=== PATIENT | female | born 1970 | race Caucasian/White ===

== ENCOUNTER 2016-09-28 21:24 | Emergency (ER) | payer MEDICAID ==
[~2016-09-28 21:24] MED LIST: ADVAIR 100/28 DISKUS IH; ALBUTEROL0.09 MG/A4 IH; AMBIEN10 MG PO; AMITRIPTYLINE50 MG PO; AMOXICILLIN 50500 MG PO; AMOXICILLIN875 MG PO; ASPIRIN 81M81 MG/TA2 PO; AUGMENTIN 875-1 EAC1 PO; BACLOFEN10 M1 PO; BACTRIM DS 8001 TAB PO; BACTROBAN 22GM22 GM TP; BENADRYL ALLERG25 M2 PO; CELEXA40 MG PO; CENTRUM SILVER1 CTB PO; CEPHALEXIN500 M1 PO; CETIRIZINE10 MG PO; CINNAMON500 MG PO; CIPRO 250MG TA250 MG PO; CIPRO 500MG TA500 MG PO; CITALOPRAM40 MG PO; DILT-CD180 MG PO; DILTIAZEM HCL180 MG PO; DILTIAZEM HYDR180 M2 PO; DIPHENHYDRAMINE50 MG PO; ED BACLOFEN10 MG PO; FLAX SEED OIL1000 MG PO; FLONASE0.05 MG/AC NS; FLOVENT DI100 MCG/Ac IH; GLUCOPHAGE1000 MG PO; GOOD SENSE ASPI81 M1 PO; IPRATROPIUM BROM3 M1 IH; LANTUS PEN100 U/ML SC; LANTUS100 U/ML SQ; LEVAQUIN 5500 MG/TA1 PO; LEVOTHYROXINE0.15 MG PO; LEVOTHYROXINE0.2 MG PO; LIORESAL 1010 MG/TAB PO; LISINOPRIL10 MG; LISINOPRIL20 MG PO; LOPRESSOR PO; LOPRESSOR50 MG PO; LYRICA 100MG C100 MG PO; LYRICA 150MG C150 MG PO; LYRICA150 MG PO; LYRICA50 MG PO; MACROBID 1100 MG/CAP PO; METFORMIN HCL1000 MG PO; METFORMIN500 MG PO; METOPROLOL SUCC50 MG PO; NORCO 325 MG-51 TAB PO; NORVASC 5MG5 MG/TAB PO; NOVOLOG FLEX100 U/ML SC; NOVOLOG FLEX100 U/ML SQ; NYSTATIN 100MU/M1 ML PO; PERCOCET 325 MG1 TA2 PO; PRINIVIL20 MG PO; PROAIR HFA IH; PROVENTIL0.09 MG/A1 IH; TRAMADOL 50 MG TAB PO; TRAZADONE HYDR100 MG PO; TRESIBA FL100 UNIT/1 SC; ULTRAM 50MG TAB50 MG PO; ULTRAM50 M1 PO; ULTRAM50 MG PO; ZOFRAN4 M1 PO
[2016-09-28] MEDS ORDERED: PREDNISONE20 M1 PO (21:47)
[2016-09-28] MEDS ORDERED: ZITHROMAX 250M250 MG PO (21:47)
== END 2016-09-28 22:22 | disposition home or self-care (01) ==
LOC: ED 21:24
DX: G89.29 Other chronic pain (principal); J20.9 Acute bronchitis, unspecified; F17.210 Nicotine dependence, cigarettes, uncomplicated
CPT/HCPCS: J1200; J1885

== ENCOUNTER 2016-12-01 09:21 | Emergency (ER) | payer MEDICAID ==
[~2016-12-01 09:21] MED LIST changes: +PREDNISONE20 M1 PO; +ZITHROMAX 250M250 MG PO
[2016-12-01] MEDS ORDERED: LOPRESSOR 550 MG/TAB PO (09:32)
[2016-12-01] MEDS ORDERED: KETOROLAC10 MG PO (10:09)
[2016-12-01 10:27] VITALS: BP 191/107
== END 2016-12-01 10:28 | disposition home or self-care (01) ==
LOC: ED 09:21
DX: M79.7 Fibromyalgia (principal)

== ENCOUNTER 2016-12-27 08:51 | Emergency (ER) | payer MEDICAID ==
[~2016-12-27 08:51] MED LIST changes: +KETOROLAC10 MG PO; +LOPRESSOR 550 MG/TAB PO
[2016-12-27] MEDS ORDERED: PREDNISONE20 M1 PO (12:45)
[2016-12-27 13:10] VITALS: BP 150/94
== END 2016-12-27 13:10 | disposition home or self-care (01) ==
LOC: ED 08:51
DX: I10 Essential (primary) hypertension (principal); F41.9 Anxiety disorder, unspecified
CPT/HCPCS: J7512

== ENCOUNTER 2017-03-31 13:55 | Emergency (ER) | payer MEDICAID ==
[~2017-03-31] VITALS: Ht 162.6 cm; Wt 106.4 kg
[2017-03-31] MEDS ORDERED: NOVOLOG FLEX100 U/ML SQ (14:48)
[2017-03-31] MEDS ORDERED: ALPRAZOLAM0.25 MG (14:49)
[2017-03-31] MEDS ORDERED: TRAMADOL 50 MG TAB PO (14:49)
[2017-03-31 21:29] VITALS: BP 164/68
== END 2017-03-31 19:50 | disposition home or self-care (01) ==
LOC: ED 13:55
DX: K08.89 Other specified disorders of teeth and supporting structures (principal); I10 Essential (primary) hypertension; E11.9 Type 2 diabetes mellitus without complications; Z79.4 Long term (current) use of insulin
CPT/HCPCS: J7030; Q9967

== ENCOUNTER 2017-04-28 23:46 | Emergency (ER) | payer MEDICAID ==
[~2017-04-28] VITALS: Ht 165.1 cm; Wt 111.4 kg
[~2017-04-28 23:46] MED LIST changes: +ALPRAZOLAM0.25 MG
[2017-04-29 00:37] VITALS: BP 154/97
== END 2017-04-29 00:37 | disposition home or self-care (01) ==
LOC: ED 23:46
DX: S50.02XA Contusion of left elbow, initial encounter (principal); W01.198A Fall on same level from slipping, tripping and stumbling with subsequent striking against other object, initial encounter; Y92.009 Unspecified place in unspecified non-institutional (private) residence as the place of occurrence of the external cause; M79.7 Fibromyalgia; I10 Essential (primary) hypertension; F41.9 Anxiety disorder, unspecified; F17.200 Nicotine dependence, unspecified, uncomplicated; E03.9 Hypothyroidism, unspecified
CPT/HCPCS: J2270

== ENCOUNTER 2017-06-30 11:59 | Emergency (ER) | payer MEDICAID ==
[~2017-06-30] VITALS: Ht 162.6 cm; Wt 106.8 kg
[~2017-06-30 11:59] MED LIST changes: -AMBIEN10 MG PO; +AMBIEN5 M1 PO
[2017-06-30] MEDS ORDERED: D-1000 185 MG-11 TAB (12:13)
[2017-06-30] MEDS ORDERED: CYANOCOBAL1000 MCG/1 IM (12:13)
[2017-06-30 13:49] VITALS: BP 177/107
== END 2017-06-30 13:57 | disposition home or self-care (01) ==
LOC: ED 11:59
DX: S90.02XA Contusion of left ankle, initial encounter (principal); S90.32XA Contusion of left foot, initial encounter; S80.02XA Contusion of left knee, initial encounter; S80.12XA Contusion of left lower leg, initial encounter; W01.10XA Fall on same level from slipping, tripping and stumbling with subsequent striking against unspecified object, initial encounter; Y92.009 Unspecified place in unspecified non-institutional (private) residence as the place of occurrence of the external cause; I10 Essential (primary) hypertension; E11.9 Type 2 diabetes mellitus without complications; Z79.4 Long term (current) use of insulin; E03.9 Hypothyroidism, unspecified; F41.9 Anxiety disorder, unspecified; F32.9 Major depressive disorder, single episode, unspecified; M79.7 Fibromyalgia; G89.29 Other chronic pain

== ENCOUNTER 2017-07-16 13:00 | Outpatient (RCR) | payer MEDICAID ==
[~2017-07-16 13:00] MED LIST changes: +CYANOCOBAL1000 MCG/1 IM; +D-1000 185 MG-11 TAB
== END 2017-07-16 13:30 | disposition home or self-care (01) ==
LOC: PT 13:00
DX: M79.7 Fibromyalgia (principal); R29.6 Repeated falls; R29.898 Other symptoms and signs involving the musculoskeletal system

== ENCOUNTER → 2017-10-08 | Outpatient (CLI) | payer MEDICAID | LOC: LAB 12:54 | DX: F19.90 Other psychoactive substance use, unspecified, uncomplicated (principal); Z91.040 Latex allergy status ==

== ENCOUNTER → 2017-10-18 | Outpatient (CLI) | payer MEDICAID ==
[2017-10-18 16:52] LABS: BASO # 0.1 (0.02-0.10); EOS # 0.3 (0.04-0.40); EOS % 1.9 % (1.0-5.0); HEMATOCRIT 39.7 % (37.0-47.0); HEMOGLOBIN 12.4 g/dL (12.5-16.0); LYMPH# 3.4 (1.50-4.00); MEAN CELL VOLUME 85 fl (78-100); MEAN CORPUSCULAR HEMOGLOBIN 27 pg (27-31); MEAN CORPUSCULAR HGB CONC 31 g/dL (33-37); MEAN PLATELET VOLUME 10.9 fl (7.4-10.4); MONO # 0.8 (0.20-0.80); NEU # 8.9 (1.40-6.50); PLATELET COUNT 429 K/mm3 (130-400); RED BLOOD COUNT 4.65 M/mm3 (4.10-5.30); RED CELL DISTRIBUTION WIDTH 15.2 % (11.5-14.5); WHITE BLOOD COUNT 13.5 K/mm3 (4.8-10.8)
[2017-10-18 21:00] LABS: ALBUMIN 3.8 g/dL (3.5-5.0); BUN/CREATININE RATIO 10.2 (6.0-26.0); CALCIUM 8.8 mg/dL (8.4-10.2); POTASSIUM 4.1 mmol/L (3.6-5.0); TOTAL BILIRUBIN 0.2 mg/dL (0.2-1.3); TOTAL PROTEIN 7.1 g/dL (6.3-8.2)
== END ==
LOC: LAB 15:55
PROVIDERS: Family Medicine
DX: E66.9 Obesity, unspecified (principal); Z91.040 Latex allergy status

== ENCOUNTER → 2017-10-26 | Outpatient (CLI) | payer MEDICAID | LOC: RAD 15:34 | DX: R07.81 Pleurodynia (principal); Z91.81 History of falling; R05 Cough ==

== ENCOUNTER → 2017-11-29 | Outpatient (CLI) | payer MEDICAID | LOC: RAD 12:00 | DX: M51.26 Other intervertebral disc displacement, lumbar region (principal); M48.061 Spinal stenosis, lumbar region without neurogenic claudication; M48.02 Spinal stenosis, cervical region ==

== ENCOUNTER 2018-03-08 05:11 | Emergency (ER) | payer MEDICAID ==
[2018-03-08 05:42] VITALS: BP 156/97
== END 2018-03-08 05:42 | disposition home or self-care (01) ==
LOC: ED 05:11
DX: E11.40 Type 2 diabetes mellitus with diabetic neuropathy, unspecified (principal); M79.7 Fibromyalgia; Z79.4 Long term (current) use of insulin; Z79.899 Other long term (current) drug therapy
CPT/HCPCS: J1885

== ENCOUNTER → 2018-04-01 | Outpatient (CLI) | payer MEDICAID ==
[2018-03-08 05:42] VITALS: BP 156/97
[~2018-04-01] MED LIST changes: +NORCO 325 MG-51 TA1 PO
[2018-04-01 10:40] LABS: URINE WBC 0 /hpf (0-3)
== END ==
LOC: LAB 10:21
PROVIDERS: Family Medicine
DX: R30.0 Dysuria (principal)

== ENCOUNTER 2018-04-02 23:58 | Emergency (ER) | payer MEDICAID ==
[~2018-04-02 23:58] MED LIST changes: -NORCO 325 MG-51 TA1 PO
[2018-04-03] MEDS ORDERED: NORCO 325 MG-51 TA1 PO (01:52)
[2018-04-03 02:00] VITALS: BP 198/113
== END 2018-04-03 02:00 | disposition home or self-care (01) ==
LOC: ED 23:58
DX: G89.29 Other chronic pain (principal); M79.7 Fibromyalgia; E11.42 Type 2 diabetes mellitus with diabetic polyneuropathy; Z79.4 Long term (current) use of insulin; Z79.899 Other long term (current) drug therapy

== ENCOUNTER → 2018-04-02 | Outpatient (CLI) | payer MEDICAID ==
[2018-03-08 05:42] VITALS: BP 156/97
[2018-04-02 10:54] LABS: URINE APPEARANCE HAZY; URINE COLOR YELLOW
[2018-04-02 10:55] LABS: URINE BILIRUBIN NEGATIVE (NEGATIVE); URINE BLOOD NEGATIVE (NEGATIVE); URINE GLUCOSE 50 mg/dL mg/dL (NEGATIVE); URINE KETONE 1+ (NEGATIVE); URINE LEUKOCYTE ESTERASE TRACE (NEGATIVE); URINE NITRATE NEGATIVE (NEGATIVE); URINE PROTEIN(semi-quant) NEGATIVE (NEGATIVE); URINE UROBILINOGEN NORMAL (NORMAL)
== END ==
LOC: LAB 09:35
PROVIDERS: Family Medicine
DX: R30.0 Dysuria (principal)

== ENCOUNTER → 2018-09-05 | Outpatient (CLI) | payer MEDICAID ==
[~2018-09-05] MED LIST changes: +NORCO 325 MG-51 TA1 PO
== END ==
LOC: RAD 14:29
DX: M51.37 Other intervertebral disc degeneration, lumbosacral region (principal); M48.061 Spinal stenosis, lumbar region without neurogenic claudication; R29.898 Other symptoms and signs involving the musculoskeletal system

== ENCOUNTER → 2018-09-05 | Outpatient (CLI) | payer MEDICAID ==
[2018-09-05 10:23] LABS: BASO # 0.1 (0.02-0.10); EOS # 0.1 (0.04-0.40); EOS % 1.6 % (1.0-5.0); HEMATOCRIT 35.2 % (37.0-47.0); LYMPH# 2.6 (1.50-4.00); MEAN CELL VOLUME 83 fl (78-100); MEAN CORPUSCULAR HEMOGLOBIN 26 pg (27-31); MEAN CORPUSCULAR HGB CONC 31 g/dL (33-37); MONO # 0.4 (0.20-0.80); NEU # 4.8 (1.40-6.50); PLATELET COUNT 382 K/mm3 (130-400); RED BLOOD COUNT 4.25 M/mm3 (4.10-5.30); RED CELL DISTRIBUTION WIDTH 16.2 % (11.5-14.5)
[2018-09-05 10:33] LABS: ALBUMIN 4.3 g/dL (3.5-5.0); CALCIUM 9.6 mg/dL (8.4-10.2); POTASSIUM 3.9 mmol/L (3.6-5.0); TOTAL BILIRUBIN 0.3 mg/dL (0.2-1.3); TOTAL PROTEIN 7.2 g/dL (6.3-8.2)
== END ==
LOC: LAB 10:04
PROVIDERS: Nurse Practitioner Family
DX: E13.8 Other specified diabetes mellitus with unspecified complications (principal); E55.9 Vitamin D deficiency, unspecified

== ENCOUNTER → 2018-12-06 | Outpatient (CLI) | payer MEDICAID ==
[2018-12-06 15:48] LABS: BASO # 0.1 (0.02-0.10); EOS # 0.3 (0.04-0.40); EOS % 2.3 % (1.0-5.0); HEMATOCRIT 37.1 % (37.0-47.0); HEMOGLOBIN 11.4 g/dL (12.5-16.0); LYMPH# 3.1 (1.50-4.00); MEAN CELL VOLUME 85 fl (78-100); MEAN CORPUSCULAR HEMOGLOBIN 26 pg (27-31); MEAN CORPUSCULAR HGB CONC 31 g/dL (33-37); MEAN PLATELET VOLUME 10.4 fl (7.4-10.4); MONO # 0.6 (0.20-0.80); NEU # 6.6 (1.40-6.50); PLATELET COUNT 470 K/mm3 (130-400); RED BLOOD COUNT 4.36 M/mm3 (4.10-5.30); RED CELL DISTRIBUTION WIDTH 17.3 % (11.5-14.5); WHITE BLOOD COUNT 10.7 K/mm3 (4.8-10.8)
[2018-12-06 15:57] LABS: ALBUMIN 4.1 g/dL (3.5-5.0); CALCIUM 9.2 mg/dL (8.4-10.2); POTASSIUM 3.7 mmol/L (3.6-5.0); TOTAL BILIRUBIN 0.3 mg/dL (0.2-1.3); TOTAL PROTEIN 7.4 g/dL (6.3-8.2)
[2018-12-07 00:35] LABS: FOLATE (FOLIC ACID) 9.1 ng/mL (7.0-31.4)
== END ==
LOC: LAB 15:27
PROVIDERS: Physician Assistant
DX: E13.8 Other specified diabetes mellitus with unspecified complications (principal); I10 Essential (primary) hypertension; E03.9 Hypothyroidism, unspecified; R20.0 Anesthesia of skin

== ENCOUNTER → 2019-03-13 | Outpatient (CLI) | payer MEDICAID ==
[2019-03-13 10:47] LABS: BASO # 0.1 (0.02-0.10); EOS # 0.1 (0.04-0.40); EOS % 1.4 % (1.0-5.0); HEMATOCRIT 37.8 % (37.0-47.0); HEMOGLOBIN 11.8 g/dL (12.5-16.0); LYMPH# 2.8 (1.50-4.00); MEAN CELL VOLUME 86 fl (78-100); MEAN CORPUSCULAR HEMOGLOBIN 27 pg (27-31); MEAN CORPUSCULAR HGB CONC 31 g/dL (33-37); MEAN PLATELET VOLUME 10.6 fl (7.4-10.4); MONO # 0.6 (0.20-0.80); NEU # 5.3 (1.40-6.50); PLATELET COUNT 470 K/mm3 (130-400); RED BLOOD COUNT 4.39 M/mm3 (4.10-5.30); RED CELL DISTRIBUTION WIDTH 15.2 % (11.5-14.5)
== END ==
LOC: LAB 10:24
PROVIDERS: Nurse Practitioner Family
DX: D47.3 Essential (hemorrhagic) thrombocythemia (principal); E03.9 Hypothyroidism, unspecified

== ENCOUNTER 2019-07-19 12:52 | Outpatient (RCR) | payer MEDICAID ==
[2019-07-05 11:37] VITALS: BP 148/84
[2019-07-05 12:40] VITALS: BP 153/82
[2019-07-12 13:43] VITALS: BP 117/67
[2019-07-12 14:44] VITALS: BP 116/67
[~2019-07-19] VITALS: Ht 162.6 cm; Wt 119.2 kg
[2019-07-19 13:31] VITALS: BP 113/64
[2019-07-19 14:27] VITALS: BP 111/60
== END 2019-10-03 | disposition still patient (30) ==
LOC: AMSURD
DX: Z51.81 Encounter for therapeutic drug level monitoring (principal); Z79.899 Other long term (current) drug therapy
CPT/HCPCS: J2916

== ENCOUNTER 2020-10-20 12:14 | Emergency (ER) | payer MEDICAID ==
[~2020-10-20] VITALS: Ht 162.6 cm; Wt 105.9 kg
[~2020-10-20 12:14] MED LIST changes: -ADVAIR 100/28 DISKUS IH; +ADVAIR DISKUS1 DSK IH; +CEPHALEXIN250 MG PO; -CETIRIZINE10 MG PO; +CYMBALTA30 M1 PO; +HCTZ 25MG25 MG PO; +LAMICTAL 100MG100 MG PO; -LIORESAL 1010 MG/TAB PO; +LISINOPRIL40 MG PO; +OMEPRAZOLE40 MG PO; -PROAIR HFA IH; +PROAIR HFA0.09 MG/AC IH; +REQUIP0.25 M1 PO; +ZYRTEC10 M3 PO
[2020-10-20] MEDS ORDERED: CRESTOR 10MG10 MG PO (12:56)
[2020-10-20] MEDS ORDERED: LASIX20 M1 PO (12:57)
[2020-10-20] MEDS ORDERED: VICTOZA 3-0.6 MG/0.1 SQ (12:59)
[2020-10-20] MEDS ORDERED: TRAMADOL 50 MG TAB PO (13:41)
[2020-10-20 13:44] VITALS: BP 125/72
== END 2020-10-20 13:50 | disposition home or self-care (01) ==
LOC: ED 12:14
DX: M25.511 Pain in right shoulder (principal); E11.9 Type 2 diabetes mellitus without complications; E78.5 Hyperlipidemia, unspecified; F32.9 Major depressive disorder, single episode, unspecified; I48.91 Unspecified atrial fibrillation; Z90.49 Acquired absence of other specified parts of digestive tract; Z91.040 Latex allergy status; Z79.51 Long term (current) use of inhaled steroids; Z79.82 Long term (current) use of aspirin; Z79.4 Long term (current) use of insulin; Z79.890 Hormone replacement therapy
CPT/HCPCS: J1885

== ENCOUNTER 2020-12-11 12:26 | Emergency (ER) | payer MEDICAID ==
[~2020-12-11 12:26] MED LIST changes: +CRESTOR 10MG10 MG PO; +LASIX20 M1 PO; +VICTOZA 3-0.6 MG/0.1 SQ
[2020-12-11] MEDS ORDERED: REQUIP0.25 M1 PO (16:30)
[2020-12-11] MEDS ORDERED: BACLOFEN10 M1 PO (16:30)
[2020-12-11] MEDS ORDERED: TRAMADOL 50 MG TAB PO (16:30)
[2020-12-11] MEDS ORDERED: LYRICA 150MG C150 MG PO (16:30)
[2020-12-11 16:43] VITALS: BP 166/83
== END 2020-12-11 16:43 | disposition home or self-care (01) ==
LOC: ED 12:26
DX: M79.7 Fibromyalgia (principal); I10 Essential (primary) hypertension; I48.91 Unspecified atrial fibrillation; E11.9 Type 2 diabetes mellitus without complications; F32.9 Major depressive disorder, single episode, unspecified; F41.9 Anxiety disorder, unspecified; E78.5 Hyperlipidemia, unspecified; Z90.49 Acquired absence of other specified parts of digestive tract; Z91.040 Latex allergy status; Z79.4 Long term (current) use of insulin; Z79.82 Long term (current) use of aspirin; Z79.891 Long term (current) use of opiate analgesic; Z79.899 Other long term (current) drug therapy; Z79.51 Long term (current) use of inhaled steroids; Z79.890 Hormone replacement therapy

== ENCOUNTER → 2020-12-20 | Outpatient (CLI) | payer MEDICAID ==
[2020-12-20 12:15] VITALS: BP 158/63
[2020-12-20 12:30] LABS: ALBUMIN 4.4 g/dL (3.5-5.0)
[2020-12-20 12:31] LABS: POTASSIUM 3.7 mmol/L (3.5-5.1)
[2020-12-20 12:32] LABS: CALCIUM 9.5 mg/dL (8.3-10.5)
[2020-12-20 12:35] LABS: TOTAL BILIRUBIN 0.5 mg/dL (0.2-1.2)
== END ==
LOC: AMSURD 11:44
PROVIDERS: Nurse Practitioner
DX: R11.2 Nausea with vomiting, unspecified (principal)
CPT/HCPCS: J2405; J7030

== ENCOUNTER → 2021-01-07 | Outpatient (CLI) | payer MEDICAID ==
[2020-12-20 12:15] VITALS: BP 158/63
== END ==
LOC: RAD 08:12
DX: J34.89 Other specified disorders of nose and nasal sinuses (principal)
CPT/HCPCS: A9585

== ENCOUNTER → 2021-03-10 | Outpatient (CLI) | payer MEDICAID | LOC: LAB 13:34 | DX: Z79.891 Long term (current) use of opiate analgesic (principal) ==

== ENCOUNTER → 2021-09-25 | Outpatient (CLI) | payer MEDICAID ==
[2021-09-25 11:22] LABS: BASO # 0.06 K/mm3 (0.02-0.10); EOS # 0.28 K/mm3 (0.04-0.40); EOS % 2.8 % (1.0-5.0); HEMOGLOBIN 10.9 g/dL (12.5-16.0); MEAN CELL VOLUME 81 fl (78-100); MEAN CORPUSCULAR HEMOGLOBIN 25 pg (27-31); MEAN CORPUSCULAR HGB CONC 31 g/dL (33-37); MEAN PLATELET VOLUME 10.4 fl (7.4-10.4); MONO # 0.59 K/mm3 (0.20-0.80); NEU # 4.51 K/mm3 (1.40-6.50); PLATELET COUNT 397 K/mm3 (130-400); RED BLOOD COUNT 4.33 M/mm3 (4.10-5.30); RED CELL DISTRIBUTION WIDTH 15.4 % (11.5-14.5); WHITE BLOOD COUNT 10.1 K/mm3 (4.8-10.8)
[2021-09-25 11:24] LABS: POTASSIUM 3.8 mmol/L (3.5-5.1)
[2021-09-25 11:25] LABS: ALBUMIN 3.7 g/dL (3.5-5.0)
[2021-09-25 11:26] LABS: CALCIUM 8.9 mg/dL (8.3-10.5)
[2021-09-25 11:27] LABS: TOTAL PROTEIN 6.8 g/dL (6.4-8.3)
[2021-09-25 11:29] LABS: TOTAL BILIRUBIN 0.2 mg/dL (0.2-1.2)
== END ==
LOC: LAB 10:48
PROVIDERS: Nurse Practitioner
DX: E11.3293 Type 2 diabetes mellitus with mild nonproliferative diabetic retinopathy without macular edema, bilateral (principal); Z79.4 Long term (current) use of insulin

== ENCOUNTER → 2022-05-11 | Outpatient (CLI) | payer MEDICAID | LOC: RAD 12:51 | DX: K43.9 Ventral hernia without obstruction or gangrene (principal); M25.512 Pain in left shoulder ==

== ENCOUNTER → 2023-06-07 | Outpatient (CLI) | payer MEDICAID ==
[~2023-06-07] MED LIST changes: +FLUCONAZOLE100 MG PO; +INSULIN AS100 UNIT/2 SQ
== END ==
LOC: RAD 09:28
DX: M17.12 Unilateral primary osteoarthritis, left knee (principal)

== ENCOUNTER → 2024-06-20 | Outpatient (CLI) | payer MEDICAID ==
[~2024-06-20] MED LIST changes: +ABILIFY5 MG; +HYDROXYZINE HCL25 M1; +K-TAB20 MEQ; +LANTUS PEN100 U/ML SQ; +MUPIROCIN2%; +VIIBRYD20 MG; +VRAYLAR1.5 MG
== END ==
LOC: RAD 07:22
DX: N63.20 Unspecified lump in the left breast, unspecified quadrant (principal)
CPT/HCPCS: 15989; 15990; A4648